=== PATIENT | female | born 1985 | race Hispanic/Latino ===

== ENCOUNTER 2017-10-23 14:43 | Emergency (ER) | payer BC ==
[2017-10-23 15:01] VITALS: BP 127/76; PULSE 83; RESP 16; TEMP 98.2; O2SAT 99
[2017-10-23] MEDS ORDERED: Sodium Chloride 0.9% 1,000 ML IV STA (15:44)
--- NOTE | 2017-10-23 15:48 | ED PDOC ---
HPI: Abdomen Time Seen by Provider: 10/23/17 15:14 Chief Complaint (Nursing): Abdominal Pain Chief Complaint (Provider): Right sided abdominal pain on/off for a week. History Per: Patient History/Exam Limitations: no limitations Onset/Duration Of Symptoms: Days Outside of [place] travel?: No Current Symptoms Are (Timing): Still Present Quality Of Discomfort: Dull Associated Symptoms: Nausea, Loss Of Appetite. denies: Fever, Chills Exacerbating Factors: None Alleviating Factors: None Additional Complaint(s): 31 yo female with history of ovarian cysts presents with right sided pain on/ off for 5 days. Pt states that she feels it is worse after eating and associated with nausea. No current nausea but patient reports feeling no nausea now. Pt was sent to ER by urgent care for further evaluation. Past Medical History Reviewed: Historical Data, Nursing Documentation, Vital Signs Vital Signs: Last Vital Signs Temp 98.2 F 10/23/17 14:59 Pulse 83 10/23/17 14:59 Resp 16 10/23/17 14:59 BP 127/76 10/23/17 14:59 Pulse Ox 99 10/23/17 15:49 - Medical History PMH: No Chronic Diseases - Surgical History Surgical History: No Surg Hx - Family History Family History: States: Unknown Family Hx - Living Arrangements Living Arrangements: With Family - Social History Current smoker - smoking cessation education provided: No Alcohol: None Drugs: Denies - Allergies Allergies/Adverse Reactions: Allergies Allergy/AdvReac Type Severity Reaction Status Date / Time [facility] Allergy ANAPHYLAXIS Verified 10/23/17 15:00 Review of Systems ROS Statement: Except As Marked, All Systems Reviewed And Found Negative Constitutional: Negative for: Fever, Chills Gastrointestinal: Positive for: Nausea, Abdominal Pain. Negative for: Vomiting Genitourinary Female: Negative for: Dysuria Skin: Negative for: Rash Physical Exam - Reviewed Nursing Documentation Reviewed: Yes Vital Signs Reviewed: Yes - Physical Exam Appears: Positive for: Well, Non-toxic, No Acute Distress Head Exam: Positive for: ATRAUMATIC, NORMAL INSPECTION, NORMOCEPHALIC Skin: Positive for: Normal Color, Warm, DRY Eye Exam: Positive for: Normal appearance ENT: Positive for: Normal ENT Inspection Neck: Positive for: Normal, Painless ROM Cardiovascular/Chest: Positive for: Regular Rate, Rhythm Respiratory: Positive for: Normal Breath Sounds. Negative for: Accessory Muscle Use, Respiratory Distress Gastrointestinal/Abdominal: Positive for: Normal Exam, Soft. Negative for: Tenderness, Guarding, Rebound Back: Positive for: Normal Inspection Extremity: Positive for: Normal ROM Neurologic/Psych: Positive for: Alert, Oriented - Laboratory Results Result Diagrams: 10/23/17 17:02 10/23/17 17:02 - ECG O2 Sat by Pulse Oximetry: 99 Medical Decision Making Medical Decision Making: Pt is non-tender on revaluation but does report RLQ pain. Pt does not want CT in ER. Dr. Mcfadden discussed risk/benefit with patient. Disposition - Clinical Impression Clinical Impression: Abdominal pain - Patient ED Disposition Is Patient to be Admitted: No - Disposition Disposition: Against Medical Advice Disposition Time: 17:43 Condition: STABLE Additional Instructions: Please return for pain in the right lower side, diarrhea, vomiting, fever or any concerns. Instructions: Stomach Ache and Stomach Upset Forms: [email or web address] ([place])
[2017-10-23 17:10] LABS: BASO # 0.1 K/uL (0.0-0.2); BASO % 1.1 % (0.0-2.0); EOS # 0.1 K/uL (0.0-0.7); EOS % 0.7 % (0.0-4.0); HEMOGLOBIN 11.3 g/dL (12.0-16.0); LYMPH # 1.2 K/uL (1.0-4.3); LYMPH % 14.1 % (20.0-40.0); MEAN CELL VOLUME 77.8 fl (81.0-99.0); MEAN CORPUSCULAR HEMOGLOBIN 24.8 pg (27.0-31.0); MEAN CORPUSCULAR HGB CONC 31.9 g/dL (33.0-37.0); MEAN PLATELET VOLUME 12.5 fl (7.2-11.7); MONO # 0.7 K/uL (0.0-0.8); MONO % 7.6 % (0.0-10.0); NEUT # 6.8 K/uL (1.8-7.0); NEUT % 76.5 % (50.0-75.0); RBC 4.54 Mil/uL (3.80-5.20); RED CELL DISTRIBUTION WIDTH 15.1 % (11.5-14.5); WHITE BLOOD COUNT 8.8 K/uL (4.8-10.8)
--- NOTE | 2017-10-23 17:15 | US ---
HISTORY: ruq pain, 1 week ; LMP 10/08/2017. COMPARISON: None available. TECHNIQUE: Transvaginal pelvic ultrasound was performed with longitudinal and transverse images submitted for interpretation. FINDINGS: UTERUS: Measures 7.6 x 4.0 x 5.3 cm. Normal in size and appearance. No fibroid or other mass lesion seen. ENDOMETRIUM: Measures 12.0 mm in diameter. [id number] heterogeneity without focal mass appreciable. CERVIX: No cervical abnormality identified. RIGHT OVARY: Measures 4.3 x 2.9 x 3.8 cm. No solid mass. Normal flow. Follicles seen scattered. A 2.1 x 1.4 x 1.7 cm avascular area of inhomogeneous echoes is seen within a probable hemorrhagic cyst or crenating follicle. A dominant follicle is simple appearing and measures 1.7 cm. LEFT OVARY: Measures 3.1 x 2.3 x 2.9 cm. No solid mass. Normal flow. Follicles are scattered. FREE FLUID: A mild amount of fluid is seen the cul-de-sac as well as right adnexa compartment could be a function of right adnexal cyst rupture. OTHER FINDINGS: None. IMPRESSION: 1. Possible hemorrhagic cyst or creating follicle 2.1 cm right ovary. Limited right adnexal and cul-de-sac fluid may be a function of cyst rupture. Follow-up transvaginal pelvic ultrasound recommended in 48 weeks. Unremarkable left ovary. 2. Inhomogeneous 12 mm endometrium compatible with patient's menstrual cycle. 3. No sonographic evidence to suggest ovarian torsion bilaterally.
--- NOTE | 2017-10-23 17:19 | US ---
HISTORY: ruq pain COMPARISON: None. TECHNIQUE: Sonographic evaluation of the right upper quadrant of the abdomen. FINDINGS: LIVER: Measures 14.4 cm in length. Normal echogenicity of the liver parenchyma. No mass. No intrahepatic bile duct dilatation. GALLBLADDER: Unremarkable. No gallstones. COMMON BILE DUCT: Measures 4.0 mm. No stones. No dilatation. PANCREAS: Unremarkable as visualized. No mass. No ductal dilatation. RIGHT KIDNEY: Measures 9.9 cm in length. Normal echogenicity. No calculus, mass, or hydronephrosis. AORTA: No aneurysmal dilatation. IVC: Unremarkable. OTHER FINDINGS: None . IMPRESSION: Unremarkable limited abdomen ultrasound.
[2017-10-23 17:21] LABS: ALB/GLOB RATIO 1.3 (1.0-2.1); ALT/SGPT 43 U/L (9-52); AST/SGOT 28 U/L (14-36); BLOOD UREA NITROGEN 10 mg/dl (7-17); CALCIUM 9.5 mg/dL (8.4-10.2); GFR AFRICAN-AMERICAN > 60; GFR NON-AFRICAN AMERICAN > 60
[2017-10-23] MEDS ORDERED: Iohexol 300 100 ML IJ ONE (18:18)
[2017-10-23] MEDS ORDERED: Sodium Chloride 0.9% 100 ML ONE (18:18)
--- NOTE | 2017-10-23 19:08 | CT ---
PROCEDURE: CT Abdomen and Pelvis with contrast HISTORY: right sided abdominal pain COMPARISON: None. TECHNIQUE: Contrast dose: Omnipaque 300, 95 cc Radiation dose: Total exam DLP = 471.99 mGy-cm. This CT exam was performed using one or more of the following dose reduction techniques: Automated exposure control, adjustment of the mA and/or kV according to patient size, and/or use of iterative reconstruction technique. FINDINGS: LOWER THORAX: Unremarkable. LIVER: Unremarkable. No gross lesion or ductal dilatation. GALLBLADDER AND BILE DUCTS: Unremarkable. PANCREAS: Unremarkable. No gross lesion or ductal dilatation. SPLEEN: Unremarkable. ADRENALS: Unremarkable. No mass. KIDNEYS AND URETERS: Unremarkable. No hydronephrosis. No solid mass. VASCULATURE: Unremarkable. No aortic aneurysm. BOWEL: Unremarkable. No obstruction. No gross mural thickening. APPENDIX: Appendix not clearly identified. If there remains clinical concern for appendicitis then follow-up CT with oral and intravenous contrast is advised within 24 hours. PERITONEUM: Unremarkable. No free fluid. No free air. LYMPH NODES: Unremarkable. No enlarged lymph nodes. BLADDER: Unremarkable. REPRODUCTIVE: Limited fluid is seen the bilateral adnexal compartments with a small right adnexal cyst measuring 1.6 cm. BONES: No acute fracture. OTHER FINDINGS: None. IMPRESSION: Potential partial rupture of a right adnexal cyst measure 1.6 cm with fluid not only the right but also left adnexal compartment. The appendix is not clearly identified. Clinically correlate for potential appendicitis. If appendicitis remains of clinical concern then follow-up CT with oral and intravenous contrast is advised within 24 hours.
== END 2017-10-23 19:45 | disposition home or self-care (01) ==
LOC: H.ER 14:43
DX: R10.31 Right lower quadrant pain (principal); R19.7 Diarrhea, unspecified; R11.10 Vomiting, unspecified; R50.9 Fever, unspecified
CPT/HCPCS: 74177; 76705; 76830; 80053; 81025; 85025; 99283; J7040; Q9967